=== PATIENT | female | born 1970 | race Caucasian/White ===

== ENCOUNTER 2017-04-07 02:01 | Emergency (ER) | payer MEDICAID ==
[~2017-04-07] VITALS: Ht 144.8 cm; Wt 63.6 kg
[2017-04-07] MEDS ORDERED: LORazepam 2 MG TABLET PO ONE (02:45)
[2017-04-07 02:54] LABS: BASOPHILS % (AUTO) 0.8 % (0.0-2.0); EOSINOPHILS % (AUTO) 1.2 % (1.0-6.0); HEMATOCRIT 42.2 % (36-46); HEMOGLOBIN 14.4 g/dL (12.0-16.0); LYMPHOCYTES # (AUTO) 2.3 K/uL (1.0-4.8); LYMPHOCYTES % (AUTO) 28.9 % (22.0-44.0); MEAN CORPUSCULAR HEMOGLOBIN 30.1 pg (26.0-34.0); MEAN CORPUSCULAR HGB CONC 34.1 G/dL (31.0-37.0); MEAN CORPUSCULAR VOLUME 88 fL (80-100); MONOCYTES # (AUTO) 0.6 K/uL (0.1-1.0); MONOCYTES % (AUTO) 8.1 % (2.0-9.0); NEUTROPHILS # (AUTO) 4.8 K/uL (1.8-7.7); PLATELET COUNT (AUTO) 254 K/uL (150-450); RED BLOOD CELL COUNT(AUTO) 4.79 MIL/uL (4.00-5.20); RED CELL DISTRIBUTION WIDTH 14.2 % (11.5-14.5); WHITE BLOOD COUNT (AUTO) 7.9 K/uL (4.5-11.0)
[2017-04-07 03:04] LABS: ANION GAP 9 mmol/L (8-16); CALCIUM, TOTAL 9.3 mg/dL (8.8-10.5); CARBON DIOXIDE 26 mmol/L (22-29); CHLORIDE 104 mmol/L (98-107); CREATININE 0.69 mg/dL (0.60-1.30); GLOMERULAR FILTR. RATE CALC > 60 mL/min (>60); POTASSIUM 3.6 mmol/L (3.5-5.1); SODIUM SERUM 139 mmol/L (136-145); UREA NITROGEN, BLOOD 14 mg/dL (7-18)
[2017-04-07 04:14] VITALS: BP 125/72
== END 2017-04-07 05:10 | disposition home or self-care (01) ==
LOC: EMS 02:02
DX: F41.9 Anxiety disorder, unspecified (principal); F32.9 Major depressive disorder, single episode, unspecified; G47.00 Insomnia, unspecified
CPT/HCPCS: 99284

== ENCOUNTER 2017-07-03 18:14 | Inpatient (IN) | payer MEDICAID ==
[~2017-07-03] VITALS: Ht 152.4 cm; Wt 58.3 kg
[2017-07-03] MEDS ORDERED: [UNRECOGNIZED DRUG - OTHER] PO (18:19)
[2017-07-03 18:48] LABS: BASOPHILS # (AUTO) 0.04 K/uL (0.00-0.20); BASOPHILS % (AUTO) 0.6 % (0.0-2.0); EOSINOPHILS # (AUTO) 0.15 K/uL (0.00-0.70); EOSINOPHILS % (AUTO) 2.05 % (1.0-6.0); HEMATOCRIT 44.8 % (36-46); LYMPHOCYTES # (AUTO) 2.1 K/uL (1.0-4.8); LYMPHOCYTES % (AUTO) 28.2 % (22.0-44.0); MEAN CORPUSCULAR HGB CONC 33.5 G/dL (31.0-37.0); MEAN CORPUSCULAR VOLUME 90 fL (80-100); MONOCYTES # (AUTO) 0.6 K/uL (0.1-1.0); MONOCYTES % (AUTO) 7.8 % (2.0-9.0); NEUTROPHILS # (AUTO) 4.6 K/uL (1.8-7.7); NEUTROPHILS % (AUTO) 61.4 % (40.0-70.0); PLATELET COUNT (AUTO) 253 K/uL (150-450); WHITE BLOOD COUNT (AUTO) 7.6 K/uL (4.5-11.0)
[2017-07-03 18:49] LABS: ANION GAP 8 mmol/L (8-16); CALCIUM, TOTAL 8.8 mg/dL (8.8-10.5); CARBON DIOXIDE 28 mmol/L (22-29); CHLORIDE 106 mmol/L (98-107); CREATININE 0.68 mg/dL (0.60-1.30); GLOMERULAR FILTR. RATE CALC > 60 mL/min (>60); POTASSIUM 3.7 mmol/L (3.5-5.1); SODIUM SERUM 142 mmol/L (136-145); UREA NITROGEN, BLOOD 17 mg/dL (7-18)
[2017-07-03 18:55] LABS: ALANINE AMINOTRANSFERASE 34 U/L (12-78); ALBUMIN 4.1 g/dL (3.4-5.0); ASPARTATE AMINOTRANSFERASE 18 U/L (15-37); BILIRUBIN,TOTAL 0.5 mg/dL (0.1-1.0); TOTAL PROTEIN, SERUM 7.5 g/dL (6.4-8.2)
[2017-07-03] MEDS ORDERED: LORazepam 2 MG/ML VIAL IM ONE (20:30)
[2017-07-03] MEDS ORDERED: DiphenhydrAMINE HCL 50 MG/ML VIAL IM ONE (20:30)
[2017-07-03] MEDS ORDERED: HALOPERIDOL LACTATE 5 MG/ML VIAL IM ONE (20:30)
[2017-07-03] MEDS ORDERED: LORazepam 2 MG TABLET PO PRN (21:15)
[2017-07-03] MEDS ORDERED: ZOLPIDEM TARTRATE 10 MG TABLET PO PRN (21:15)
[2017-07-03] MEDS ORDERED: OLANZapine 5 MG RAPDIS TABLET PO PRN (21:15)
[2017-07-03 21:23] LABS: APPEARANCE,URINE TURBID (CLEAR); GLUCOSE, URINE (UA) NEGATIVE (NEGATIVE); KETONES,URINE NEGATIVE (NEGATIVE); LEUKOCYTE ESTERASE ,URINE MODERATE (NEGATIVE); OCCULT BLOOD,URINE NEGATIVE (NEGATIVE); PROTEIN,URINE NEGATIVE (NEGATIVE)
[2017-07-03 21:27] LABS: ADD UA MICROSCOPIC YES
[2017-07-03 21:34] LABS: AMORPHOUS SEDIMENT,UR Moderate /LPF (None Seen)
[2017-07-03 21:36] LABS: CHOL/HDL RATIO 3.2 (3.9-5.7)
[2017-07-03 21:38] LABS: RBC,URINE 0-2 /HPF (0-2); SQUAMOUS EPITHELIAL CELL,UR Moderate /LPF (None Seen)
[2017-07-04 01:35] VITALS: BP 103/61
[2017-07-04 10:01] VITALS: BP 106/53
[2017-07-04] MEDS ORDERED: HydrOXYzine PAMOATE 50 MG CAPSULE PO PRN (11:15)
[2017-07-04] MEDS ORDERED: ACETAMINOPHEN 325 MG TABLET PO PRN ×2 (11:15→16:00)
[2017-07-04] MEDS ORDERED: MAG HYDROX/AL HYDROX/SIMETH ES 30 ML SUSPENSION UDCUP PO PRN (11:15)
[2017-07-04] MEDS ORDERED: PROMETHAZINE HCL 25 MG TABLET PO PRN (11:15)
[2017-07-04] MEDS ORDERED: LOPERAMIDE HCL 2 MG CAPSULE PO PRN (11:15)
[2017-07-04] MEDS ORDERED: GuaiFENesin/D-METHORPHAN [SUGAR-FREE] 200-20MG/10 ML SYRUP UDCUP PO PRN (11:15)
[2017-07-04] MEDS ORDERED: TUBERCULIN, PURIFIED PROTEIN DERIVATIVE 5 TU/0.1 ML SYG ID ONE (11:15)
[2017-07-04] MEDS ORDERED: MAGNESIUM HYDROXIDE SUSPENSION 30 ML UDCUP PO PRN (11:15)
[2017-07-04] MEDS ORDERED: IBUPROFEN 400 MG TABLET PO PRN (16:00)
[2017-07-04] MEDS: CIPROFLOXACIN HCL 250 MG TABLET PO SCH (17:55)
[2017-07-04] MEDS: THIAMINE HCL 100 MG TABLET PO SCH (17:55)
[2017-07-04 19:28] VITALS: BP 105/52
[2017-07-04] MEDS ORDERED: OLANZapine 5 MG RAPDIS TABLET PO SCH (21:00)
[2017-07-05 08:00] VITALS: BP 97/59
[2017-07-05] MEDS: CIPROFLOXACIN HCL 250 MG TABLET PO SCH ×2 (09:32→16:53)
[2017-07-05] MEDS: MULTIVITAMINS WITH MINERALS, THERAPEUTIC TABLET PO SCH (09:32)
[2017-07-05] MEDS: THIAMINE HCL 100 MG TABLET PO SCH ×2 (09:32→16:53)
[2017-07-05] MEDS: FOLIC ACID 1 MG TABLET PO SCH (09:32)
[2017-07-05] MEDS ORDERED: OLAN5TAB30 PO (11:21)
[2017-07-05 16:56] VITALS: BP 108/54
[2017-07-05] MEDS ORDERED: OLANZapine 10 MG RAPDIS TABLET PO SCH (21:00)
[2017-07-06 05:24] VITALS: BP 124/61
[2017-07-06] MEDS ORDERED: CIP250 PO (09:27)
[2017-07-06 09:41] VITALS: BP 128/84
[2017-07-06] MEDS: THIAMINE HCL 100 MG TABLET PO SCH (10:13)
[2017-07-06] MEDS: MULTIVITAMINS WITH MINERALS, THERAPEUTIC TABLET PO SCH (10:13)
[2017-07-06] MEDS: FOLIC ACID 1 MG TABLET PO SCH (10:13)
[2017-07-06] MEDS: CIPROFLOXACIN HCL 250 MG TABLET PO SCH (10:13)
== END 2017-07-06 12:00 | disposition home or self-care (01) | DRG 750 ==
LOC: EMS 18:16 → 3EI 23:07
PROVIDERS: ADMIT Psychiatry & Neurology Psychiatry; ATTEND Psychiatry & Neurology Psychiatry
DX: F20.0 Paranoid schizophrenia (principal); Z91.19 Patient's noncompliance with other medical treatment and regimen; N39.0 Urinary tract infection, site not specified; F31.9 Bipolar disorder, unspecified; Z81.8 Family history of other mental and behavioral disorders
CPT/HCPCS: 84443; 87086; 93005; 96372; 99285; G0480; J1200; J1630; J2060

== ENCOUNTER 2018-04-12 12:35 | Emergency (ER) | payer MEDICAID ==
[~2018-04-12] VITALS: Ht 152.4 cm; Wt 68.2 kg
[~2018-04-12 12:35] MED LIST: CIP250 PO; OLAN5TAB30 PO
[2018-04-12] MEDS ORDERED: KETOROLAC TROMETHAMINE 10 MG TABLET PO ONE (14:00)
[2018-04-12 14:45] LABS: BASOPHILS % (AUTO) 0.6 % (0.0-2.0); EOSINOPHILS % (AUTO) 3.2 % (1.0-6.0); HEMATOCRIT 38.1 % (36-46); HEMOGLOBIN 13.2 g/dL (12.0-16.0); LYMPHOCYTES # (AUTO) 1.7 K/uL (1.0-4.8); LYMPHOCYTES % (AUTO) 29.3 % (22.0-44.0); MEAN CORPUSCULAR HEMOGLOBIN 30.1 pg (26.0-34.0); MEAN CORPUSCULAR HGB CONC 34.6 G/dL (31.0-37.0); MEAN CORPUSCULAR VOLUME 87 fL (80-100); MONOCYTES # (AUTO) 0.8 K/uL (0.1-1.0); MONOCYTES % (AUTO) 13.7 % (2.0-9.0); NEUTROPHILS # (AUTO) 3.1 K/uL (1.8-7.7); NEUTROPHILS % (AUTO) 53.2 % (40.0-70.0); PLATELET COUNT (AUTO) 226 K/uL (150-450); RED BLOOD CELL COUNT(AUTO) 4.37 MIL/uL (4.00-5.20); RED CELL DISTRIBUTION WIDTH 13.6 % (11.5-14.5)
[2018-04-12 14:57] LABS: ANION GAP 8 mmol/L (8-16); CALCIUM, TOTAL 8.6 mg/dL (8.8-10.5); CARBON DIOXIDE 28 mmol/L (22-29); CHLORIDE 105 mmol/L (98-107); CREATININE 0.59 mg/dL (0.60-1.30); GLOMERULAR FILTR. RATE CALC > 60 mL/min (>60); GLUCOSE,RANDOM 90 mg/dL (70-110); POTASSIUM 4.1 mmol/L (3.5-5.1); SODIUM SERUM 141 mmol/L (136-145); UREA NITROGEN, BLOOD 10 mg/dL (7-18)
[2018-04-12 15:02] LABS: ALANINE AMINOTRANSFERASE 18 U/L (12-78); ALBUMIN 3.4 g/dL (3.4-5.0); ALKALINE PHOSPHATASE 70 U/L (46-116); ASPARTATE AMINOTRANSFERASE 16 U/L (15-37); BILIRUBIN,TOTAL 0.2 mg/dL (0.1-1.0); LIPASE 168 U/L (73-393); TOTAL PROTEIN, SERUM 6.7 g/dL (6.4-8.2)
[2018-04-12 16:01] VITALS: BP 127/71
== END 2018-04-12 16:05 | disposition home or self-care (01) ==
LOC: EMS 12:36
DX: M54.5 Low back pain (principal)
CPT/HCPCS: 74176; 99285

== ENCOUNTER 2020-04-19 13:43 | Inpatient (IN) | payer MEDICAID ==
[~2020-04-19] VITALS: Ht 167.6 cm; Wt 60.9 kg
[2020-04-19] MEDS ORDERED: [UNRECOGNIZED DRUG - OTHER] PO (13:53)
[2020-04-19] MEDS ORDERED: SERT50TA12 PO (13:53)
[2020-04-19] MEDS ORDERED: MELA3TAB82 PO (13:53)
[2020-04-19 15:22] LABS: BASOPHILS % (AUTO) 0.8 % (0.0-2.0); EOSINOPHILS % (AUTO) 1.4 % (1.0-6.0); HEMATOCRIT 42.3 % (36-46); HEMOGLOBIN 14.5 g/dL (12.0-16.0); LYMPHOCYTES # (AUTO) 2.4 K/uL (1.0-4.8); LYMPHOCYTES % (AUTO) 30.9 % (22.0-44.0); MEAN CORPUSCULAR HEMOGLOBIN 30.2 pg (26.0-34.0); MEAN CORPUSCULAR HGB CONC 34.3 G/dL (31.0-37.0); MEAN CORPUSCULAR VOLUME 88 fL (80-100); MONOCYTES # (AUTO) 0.6 K/uL (0.1-1.0); MONOCYTES % (AUTO) 7.4 % (2.0-9.0); NEUTROPHILS # (AUTO) 4.7 K/uL (1.8-7.7); NEUTROPHILS % (AUTO) 59.5 % (40.0-70.0); PLATELET COUNT (AUTO) 268 K/uL (150-450); RED CELL DISTRIBUTION WIDTH 14.1 % (11.5-14.5)
[2020-04-19 15:37] LABS: ANION GAP 7 mmol/L (8-16); CALCIUM, TOTAL 8.9 mg/dL (8.8-10.5); CARBON DIOXIDE 28 mmol/L (22-29); CHLORIDE 107 mmol/L (98-107); CREATININE 0.79 mg/dL (0.60-1.30); GLOMERULAR FILTR. RATE CALC > 60 mL/min (>60); GLUCOSE,RANDOM 117 mg/dL (70-110); POTASSIUM 3.2 mmol/L (3.5-5.1); SODIUM SERUM 142 mmol/L (136-145); UREA NITROGEN, BLOOD 16 mg/dL (7-18)
[2020-04-19 15:39] LABS: ALANINE AMINOTRANSFERASE 24 U/L (12-78); ALBUMIN 4.1 g/dL (3.4-5.0); ALKALINE PHOSPHATASE 60 U/L (46-116); ASPARTATE AMINOTRANSFERASE 25 U/L (15-37); BILIRUBIN,TOTAL 0.7 mg/dL (0.1-1.0); TOTAL PROTEIN, SERUM 7.7 g/dL (6.4-8.2)
[2020-04-19] MEDS ORDERED: ZOLPIDEM TARTRATE 10 MG TABLET PO PRN (16:00)
[2020-04-19] MEDS ORDERED: HALOPERIDOL 5 MG TABLET PO PRN (16:00)
[2020-04-19] MEDS ORDERED: POTASSIUM CHLORIDE 10% 40 MEQ/30 ML LIQUID UDCUP PO ONE (16:00)
[2020-04-19] MEDS ORDERED: LORazepam 2 MG TABLET PO PRN (16:00)
[2020-04-19] MEDS ORDERED: DiphenhydrAMINE HCL 50 MG/ML VIAL IM ONE (18:30)
[2020-04-19] MEDS ORDERED: LORazepam 2 MG/ML VIAL IM ONE (18:30)
[2020-04-19] MEDS ORDERED: HALOPERIDOL LACTATE 5 MG/ML VIAL IM ONE (18:30)
[2020-04-19] MEDS ORDERED: ACETAMINOPHEN 325 MG TABLET PO PRN (19:45)
[2020-04-19] MEDS ORDERED: LOPERAMIDE HCL 2 MG CAPSULE PO PRN (19:45)
[2020-04-19] MEDS ORDERED: GuaiFENesin/D-METHORPHAN [SUGAR-FREE] 200-20MG/10 ML SYRUP UDCUP PO PRN (19:45)
[2020-04-19] MEDS ORDERED: NICOTINE 14 MG/24 HOUR PATCH TD PRN (19:45)
[2020-04-19] MEDS ORDERED: ONDANSETRON HCL 4 MG TABLET PO PRN (19:45)
[2020-04-19] MEDS ORDERED: IBUPROFEN 400 MG TABLET PO PRN (19:45)
[2020-04-19] MEDS ORDERED: DOCUSATE SODIUM 100 MG CAPSULE PO PRN (19:45)
[2020-04-19] MEDS ORDERED: MAG HYDROX/AL HYDROX/SIMETH ES 30 ML SUSPENSION UDCUP PO PRN (19:45)
[2020-04-19] MEDS ORDERED: CloNIDine HCL 0.1 MG TABLET PO PRN (19:45)
[2020-04-19] MEDS ORDERED: ALBUTEROL SULFATE HFA 90 MCG/PUFF 8 GM INHALER IH PRN (19:45)
[2020-04-19] MEDS ORDERED: MAGNESIUM HYDROXIDE SUSPENSION 30 ML UDCUP PO PRN (19:45)
[2020-04-19] MEDS ORDERED: PETROLATUM,WHITE 28 GM JELLY TP PRN (19:45)
[2020-04-19] MEDS: MELATONIN 3 MG TABLET PO SCH (20:23)
[2020-04-19 21:21] VITALS: BP 134/74
[2020-04-19] MEDS ORDERED: POTASSIUM CHLORIDE 20 MEQ ER TABLET PO ONE (21:30)
[2020-04-20 06:26] LABS: CHOL/HDL RATIO 3.8 (3.9-5.7)
[2020-04-20 08:09] VITALS: BP 113/62
[2020-04-20] MEDS: OLANZapine 5 MG TABLET PO SCH ×2 (11:15→17:21)
[2020-04-20] MEDS: SERTRALINE HCL 50 MG TABLET PO SCH (11:15)
[2020-04-20 16:44] VITALS: BP 115/64
[2020-04-20] MEDS: MELATONIN 3 MG TABLET PO SCH (21:17)
[2020-04-21 08:00] VITALS: BP 117/59
[2020-04-21] MEDS: OLANZapine 5 MG TABLET PO SCH ×2 (09:26→16:16)
[2020-04-21] MEDS: SERTRALINE HCL 50 MG TABLET PO SCH (09:26)
[2020-04-21] MEDS ORDERED: POTASSIUM CHLORIDE 20 MEQ ER TABLET PO ONE (12:15)
[2020-04-21 16:22] VITALS: BP 100/64
[2020-04-21] MEDS: MELATONIN 3 MG TABLET PO SCH (20:43)
[2020-04-22] MEDS: SERTRALINE HCL 50 MG TABLET PO SCH (09:02)
[2020-04-22] MEDS: OLANZapine 5 MG TABLET PO SCH ×2 (09:02→16:11)
[2020-04-22 09:13] VITALS: BP 110/63
[2020-04-22 16:29] VITALS: BP 117/60
[2020-04-22] MEDS: MELATONIN 3 MG TABLET PO SCH (20:24)
[2020-04-23 08:00] VITALS: BP 134/57
[2020-04-23] MEDS: OLANZapine 5 MG TABLET PO SCH ×2 (08:17→16:04)
[2020-04-23] MEDS: SERTRALINE HCL 50 MG TABLET PO SCH (08:17)
[2020-04-23 16:53] VITALS: BP 129/84
[2020-04-23] MEDS: MELATONIN 3 MG TABLET PO SCH (20:44)
[2020-04-24 08:11] VITALS: BP 111/62
[2020-04-24] MEDS: SERTRALINE HCL 50 MG TABLET PO SCH (08:33)
[2020-04-24] MEDS: OLANZapine 5 MG TABLET PO SCH ×2 (08:33→16:35)
[2020-04-24] MEDS ORDERED: OLAN5TAB2 PO (13:34)
== END 2020-04-24 17:13 | disposition home or self-care (01) | DRG 885 ==
LOC: EMS 13:50 → 3EC 15:48
PROVIDERS: ADMIT Psychiatry & Neurology Psychiatry; ATTEND Psychiatry & Neurology Psychiatry
DX: F25.9 Schizoaffective disorder, unspecified (principal); K59.00 Constipation, unspecified; G47.00 Insomnia, unspecified; F41.9 Anxiety disorder, unspecified; E87.6 Hypokalemia; F31.9 Bipolar disorder, unspecified; G44.209 Tension-type headache, unspecified, not intractable
CPT/HCPCS: 84132; G0480; J1200; J1630; J2060